=== PATIENT | female | born 1985 | race Caucasian/White ===

== ENCOUNTER 2016-07-27 22:11 | Observation (INO) | payer BC ==
[~2016-07-27] VITALS: Ht 167.6 cm; Wt 67.1 kg
[2016-07-27] MEDS ORDERED: OPTIRAY 350 100 ML VIAL HMH IV ONE (22:12)
[2016-07-27] MEDS ORDERED: MORPHINE 4 MG/ML SYR ONE (23:32)
[2016-07-27] MEDS ORDERED: ONDANSETRON 4 MG VIAL ONE (23:32)
[2016-07-27] MEDS ORDERED: SODIUM CHLORIDE 0.9% 1,000 ML ONE (23:32)
[2016-07-28] VITALS (15 sets, daily range): BP systolic 117–147; RESP 14–30; TEMP 97.6–99.2; Ht 167.6 cm; Wt 67.1 kg
[2016-07-28] MEDS ORDERED: SODIUM CHLORIDE 0.9% 1,000 ML ONE (02:48)
[2016-07-28] MEDS ORDERED: CEFAZOLIN 1,000 MG VIAL ONE (02:52)
[2016-07-28] MEDS ORDERED: SODIUM CHLORIDE 0.9% 100 ML IV ONE (02:52)
[2016-07-28] MEDS ORDERED: MIDAZOLAM 2 MG/2 ML INJ IV ONE (03:05)
[2016-07-28] MEDS ORDERED: LACT RINGERS 1,000 ML IV SCH (03:05)
[2016-07-28] MEDS ORDERED: ONDANSETRON 4 MG VIAL IV PRN ×2 (04:40→05:00)
[2016-07-28] MEDS ORDERED: OXYCODONE 5 MG TAB PO PRN (04:40)
[2016-07-28] MEDS ORDERED: MEPERIDINE 25 MG/ML IV PRN (04:40)
[2016-07-28] MEDS ORDERED: MORPHINE 4 MG/ML SYR IV PRN (04:40)
[2016-07-28] MEDS ORDERED: MORPHINE 2 MG/ML SYR IV PRN (04:40)
[2016-07-28] MEDS: DILAUDID 1 MG/ML AMP IV PRN ×2 (04:54→05:06)
[2016-07-28] MEDS ORDERED: PROMETHAZINE 25 MG/ML VIAL IV PRN (05:00)
[2016-07-28] MEDS ORDERED: SALINE FLUSH 10 ML FLUSH PRN (05:00)
[2016-07-28] MEDS ORDERED: DILAUDID 1 MG/ML AMP IV PRN (05:00)
[2016-07-28] MEDS ORDERED: D5-1/2-NS W/KCL 20MEQ/L 1,000 ML IV SCH (05:00)
[2016-07-28] MEDS ORDERED: AMP/SULBACTAM 3 GM in SODIUM CHLORIDE 0.9% 100 ML IV SCH (06:00)
[2016-07-28] MEDS ORDERED: SODIUM CHLORIDE 0.9% FLUSH BAG 500 ML IV SCH (06:00)
[2016-07-28] MEDS ORDERED: FENTANYL 100 MCG/2 ML AMP IV ONE (07:36)
[2016-07-28] MEDS ORDERED: ONDANSETRON 4 MG VIAL IV PUSH ONE (07:36)
[2016-07-28] MEDS ORDERED: ROCURONIUM 50 MG VIAL IV ONE (07:36)
[2016-07-28] MEDS ORDERED: SUCCINYLCHOLINE 20 MG/ML VL IV ONE (07:36)
[2016-07-28] MEDS ORDERED: PROPOFOL 20 ML VIAL IV ONE (07:36)
[2016-07-28] MEDS ORDERED: GLYCOPYRROLATE 0.2 MG/ML VIAL IV ONE (07:36)
[2016-07-28] MEDS ORDERED: NEOSTIGMINE 10 MG/10 ML VIAL IV ONE (07:36)
[2016-07-28] MEDS ORDERED: BUPIVACA/EPI 0.25% PF 30ML NERVEBLOCK ONE (07:48)
[2016-07-28] MEDS ORDERED: FAMOTIDINE 20 MG INJ IV SCH (08:00)
[2016-07-28] MEDS ORDERED: SALINE FLUSH 10 ML FLUSH SCH (08:00)
[2016-07-28] MEDS ORDERED: MIDAZOLAM 2 MG/2 ML INJ ONE (22:53)
== END 2016-07-28 09:41 | disposition home or self-care (01) ==
LOC: ENRESERVDT → ENRESERVTM → ER 22:11 → SURG 07-28 01:54 → 5THE 07-28 04:56
PROVIDERS: ADMIT Surgery; ATTEND Surgery
DX: K80.12 Calculus of gallbladder with acute and chronic cholecystitis without obstruction (principal); Z87.891 Personal history of nicotine dependence
CPT/HCPCS: 36415; 74177; 76705; 80053; 81001; 83690; 84703; 85025; 87088; 88304; 94799